=== PATIENT | female | born 1955 | race Caucasian/White ===

== ENCOUNTER 2016-12-08 12:41 | Outpatient (RCR) | payer SELFPAY ==
--- OUTSIDE RECORDS SUMMARY | 2016-09-12 13:29 | XMS REPORT | Continuity of Care Document ---
Author Author [facility] Organization [facility] Address Unknown Phone Unavailable Care Team Providers Care Supervisor Machining Name Role Phone STEPHY YAO MD PCP Insurance Providers Payer Name Policy Number Subscriber Name Relationship [facility] [employer] [id number] Caprice Bartlett 17 Self / Same As Patient Advance Directives Directive Response Recorded Date/Time Advance Directives Yes 02/01/16 12:16pm Health Care Power of Sales Stock Associate Y ANDRZEJ 02/01/16 12:16pm Organ Donor Yes 02/01/16 12:16pm Resuscitation Status Full Code 02/01/16 12:16pm Problems Active Problems Medical Problem Onset Date Status Abnormal surgical wound Unknown Acute Cellulitis Unknown Acute Cellulitis of left leg Unknown Acute Multiple lacerations Unknown Acute Multiple lacerations Unknown Acute Nausea Unknown Acute Necrosis of surgical wound Unknown Acute Sepsis Unknown Acute Surgical wound infection Unknown Acute Medications Current Home Medications Medication Dose Units Route Directions Days/Qty Instructions Start Date Melatonin/Pyridoxine Hcl (B6) 1 Each 10 Mg Oral Bedtime 05/05/14 Diazepam 5 Mg 5 Mg Oral Bedtime FILLED TWO TIMES DAILY 04/14/15 Ranitidine Hcl 150 Mg 150 Mg Oral Daily as needed for Heartburn 08/17 Docusate Sodium 100 Mg 300 Mg Oral Daily TAKE 3 (100MG) TABS 04/14/15 Sennosides/Docusate Sodium 1 Each 3 Tab Oral Bedtime 04/14/15 Aspirin 81 Mg 81 Mg Oral Daily 05/28/15 Multivitamin 1 Each 1 Tab Oral Daily 05/28/15 Ibuprofen 800 Mg 800 Mg Oral Every 8HRS as needed for Moderate Pain 05/31/15 Oxycodone Hcl/Acetaminophen 1 Each 1-2 Tab Oral Every 4-6 Hours as needed for Pain 05/31/15 Prednisone 20 Mg 20 Mg Oral As Directed 20 06/11/15 Past Home Medications Medication Directions Ordered Status Tramadol Hcl 50 Mg Tablet, 50 Mg Oral Every 4HRS as needed for Pain 05/05/14 Discontinued Ibuprofen 200 Mg Tablet, 800 Mg Oral Three Times A Day as needed for Pain 10/17 Discontinued Cyclobenzaprine Hcl (Flexeril) 10 Mg Tablet, 10 Each Oral Three Times A Day 05/05/14 Discontinued Multivitamin 1 Each Tablet, 1 Each Oral Daily 05/05/14 Discontinued Trimethoprim/Sulfamethoxazole 1 Ea Tablet, 1 Ea Oral Twice A Day 05/05/14 Discontinued Hydrocodone Bit/Acetaminophen 1 Tab Tablet, 1 Tab Oral Every 4HRS 05/05/14 Discontinued Ibuprofen 800 Mg Tablet, 800 Mg Oral Three Times A Day 04/14/15 Discontinued Hydrocodone/Acetaminophen 1 Each Tablet, 1 Tab Oral Every 4HRS as needed for Pain 04/14/15 Discontinued Oxycodone Hcl/Acetaminophen 1 Each Tablet, 1 Each Oral Every 4HRS 04/22/15 Discontinued [Omnicef] , 300 Mg Oral Twice A Day 05/08/15 Discontinued Ibuprofen 200 Mg Tablet, 800 Mg Oral Every 8HRS as needed for Pain 05/28/15 Discontinued Vancomycin Hcl 750 Mg/Vial Soln, 1250 Mg Intraven Every 12 Hours 06/03/15 Discontinued Vancomycin Hcl 750 Mg/Vial Soln, 1250 Mg Intraven Twice A Day 06/03/15 Discontinued Social History Social History Problem Response Recorded Date/Time Alcohol Use Denies Use 06/04/2015 10:02pm Recreational Drug Use No 06/04/2015 10:02pm Recent Foreign Travel No 02/01/2016 12:16pm Sexually Transmitted Disease No 06/04/2015 10:02pm HIV/AIDS No 06/04/2015 10:02pm Do you dip or chew tobacco? No 06/04/2015 10:04pm Sexually Transmitted Disease No 06/04/2015 10:02pm Hospital Discharge Instructions No hospital discharge instructions. Plan of Care Prescriptions See Medication Section Functional Status No functional status results. Allergies, Adverse Reactions, Alerts Allergen Type Severity Reaction Status Last Updated Penicillins ([id number]) Allergy Mild DOES NOT REMEMBER, WAS A CHILD Active 04/21/15 Tetanus Vaccines & Toxoid ([id number]) Allergy Unknown Active 05/05/14 ofloxacin ([id number]) Allergy Unknown Active 05/05/14 Immunizations No immunization records. Vital Signs Acute Vital Signs Vital Response Date/Time Temperature (Fahrenheit) 98.0 degrees F (97.6 - 99.5) 04/05/2016 1:25pm Temperature (Calculated Celsius) 36.12316 degrees C (36.4 - 37.5) 04/05/2016 1:25pm Temperature Source Temporal 04/05/2016 1:25pm Pulse Rate (adult) 79 bpm (60 - 90) 04/05/2016 1:25pm Respiratory Rate 18 bpm (12 - 24) 04/05/2016 1:25pm Blood Pressure 158/90 mm Hg 04/05/2016 1:25pm Blood Pressure Mean 112 mm Hg 04/05/2016 1:25pm Pain Numeric Pain Scale 0-No Pain 04/05/2016 1:25pm Height (Feet) 5 feet 04/05/2016 1:25pm Height (Inches) 4.02 inches 04/05/2016 1:25pm Height (Calculated Centimeters) 162.276210 cm 04/05/2016 1:25pm Weight (Pounds) 250 pounds 04/05/2016 1:25pm Weight (Ounces) 7.1 oz 04/05/2016 1:25pm Weight (Calculated Grams) 486027.375 gm 04/05/2016 1:25pm Weight (Calculated Kilograms) 113.504405 kilograms 04/05/2016 1:25pm Height 5 ft 4.02 in Weight 250 lb Body Mass Index 43.0 kg/m^2 Results No known relevant diagnostic tests, laboratory data and/or discharge summary. Procedures No known history of procedures. Encounters Encounter Location Arrival/Admit Date Discharge/Depart Date Attending Provider Discharged [facility]ring [facility] 04/05/16 1:25pm 11:59pm BERNIE QUACH DO
[2016-09-12 13:49] VITALS: BP 149/82
[2016-10-13 13:45] VITALS: BP 170/92
[2016-11-10 13:39] VITALS: BP 168/91
[~2016-12-08] VITALS: Ht 162.6 cm; Wt 113.6 kg
[~2016-12-08 12:41] MED LIST: ASPI-586 PO; CYCL10TA9 PO; DIAZ5TAB3 PO; DOCU-143 PO; HYDR-3714 PO; HYDR-3816 PO; IBUP-15 PO; IBUP-1780 PO; IBUP-65 PO; MELA1TAB20 PO; MULT-974 PO; OMNICEF PO; OXYC-197 PO; PRD20T PO; RANI150T15 PO; SENN-33 PO; SULF-222 PO; TRAM50TA2 PO; VANC750V IV
[2016-12-08 13:00] VITALS: BP 146/90
== END 2016-12-11 | disposition home or self-care (01) ==
LOC: SDC 12:41
PROVIDERS: ATTEND Surgery
DX: I87.2 Venous insufficiency (chronic) (peripheral) (principal)
CPT/HCPCS: 96523

== ENCOUNTER 2017-03-12 13:03 | Outpatient (RCR) | payer MEDICARE ==
[2017-01-05 12:45] VITALS: BP 143/88
[2017-02-09 13:34] VITALS: BP 140/81
[~2017-03-12] VITALS: Ht 162.6 cm; Wt 113.6 kg
[2017-03-12 13:02] VITALS: BP 146/92
[2017-03-14] MEDS ORDERED: MELA1TAB27 PO (14:19)
[2017-03-14] MEDS ORDERED: CYAN250010 PO (14:22)
[2017-03-14] MEDS ORDERED: ACET-2267 PO (14:22)
[2017-03-14] MEDS ORDERED: MECL-106 PO (14:22)
[2017-03-15] MEDS ORDERED: DIAZ5TAB PO (09:30)
== END 2017-04-05 | disposition home or self-care (01) ==
LOC: SDC 13:03
PROVIDERS: ATTEND Surgery
DX: I87.2 Venous insufficiency (chronic) (peripheral) (principal)
CPT/HCPCS: 96523

== ENCOUNTER 2017-03-14 12:53 | Outpatient (CLI) | payer MEDICARE ==
[~2017-03-14] VITALS: Ht 162.6 cm; Wt 120.2 kg
[2017-03-14] MEDS ORDERED: MELA1TAB27 PO (14:19)
[2017-03-14] MEDS ORDERED: MECL-106 PO (14:22)
[2017-03-14] MEDS ORDERED: CYAN250010 PO (14:22)
[2017-03-14] MEDS ORDERED: ACET-2267 PO (14:22)
[2017-03-15] MEDS ORDERED: DIAZ5TAB PO (09:30)
== END 2017-03-14 14:44 ==
LOC: PREOP 12:53
PROVIDERS: ATTEND Surgery
DX: Z01.818 Encounter for other preprocedural examination (principal); Z45.2 Encounter for adjustment and management of vascular access device

== ENCOUNTER 2017-03-15 08:39 | Day surgery (SDC) | payer MEDICARE ==
[~2017-03-15] VITALS: Ht 162.6 cm; Wt 120.2 kg
[~2017-03-15 08:39] MED LIST changes: +ACET-2267 PO; +CYAN250010 PO; +MECL-106 PO; +MELA1TAB27 PO
[2017-03-15] MEDS ORDERED: CLINDAMYCIN 600 MG/NS 50 ML IVPB IV ONE ×2 (09:00)
[2017-03-15] MEDS ORDERED: CATHETER FLUSH 10 ML SYR IV PRN (09:00)
[2017-03-15] MEDS ORDERED: LACTATED RINGERS 1,000 ML IV PRN (09:15)
[2017-03-15] MEDS ORDERED: ONDANSETRON 4 MG/2 ML (SDV) Z0FRAN IV ONE (09:15)
[2017-03-15] MEDS ORDERED: FAMOTIDINE 20MG/2ML IV (PEPCID) IV ONE (09:15)
[2017-03-15] MEDS ORDERED: DIAZ5TAB PO (09:30)
[2017-03-15 09:39] VITALS: BP 136/78
--- NOTE | 2017-03-15 09:43 | Progress Note-Pre Operative ---
Pre-Operative Progress Note H&P Reviewed The H&P was reviewed, patient examined and no changes noted. Date Seen by Provider: Mar 15, 2017 Time Seen by Provider: 09:42 Date H&P Reviewed: Mar 15, 2017 Time H&P Reviewed: 09:42 Pre-Operative Diagnosis: history of cellulitis, no longer needing port BERNIE QUACH DO Mar 15, 2017 09:42
[2017-03-15] MEDS ORDERED: LIDOCAINE 1% INJ 20 ML (XYLOCAINE) VIAL ONE (09:55)
[2017-03-15] MEDS ORDERED: BUPIVACAINE 0.5% 30 ML (SENSORCAINE) VIAL ONE (09:55)
[2017-03-15] MEDS ORDERED: MIDAZOLAM 2 MG/2 ML (VERSED) VIAL ONE ×2 (10:33→10:54)
--- NOTE | 2017-03-15 11:00 | Discharge Inst-Simple/Standard ---
Discharge Inst-Standard Discharge Medications New, Converted or Re-Newed RX: RX on Chart Patient Instructions/Follow Up Plan of Care/Instructions/FU: Follow up with Dr. Quiñonez in 2 days. Apply Ice to area for 10 mins on and 10 mins off. Activity as Tolerated: No Discharge Diet: No Restrictions Other Inst to Patient Follow up Appt: Make appointment for 2 weeks. Instructions: No lifting greater than 10 pounds. No strenuous activity. May shower in 24 hours, no tub bath or soaking. Use incentive spirometer at home as directed. No Smoking Skin/Wound Care: May remove bandages. You need to leave the glue strips over incision on they will fall off on their own. Symptoms to Report: Appetite Changes, Extremity Discoloration, Numbness/Tingling, Swelling Increased , Bleeding Excessive, Eyesight Changes, Pain Increased, Urine Color Change, Constipation(Persistent), Fever over 101 degree F, Pain/Pressure in chest, Urinating Difficulty, Cough Up/Vomit Blood, Heart Beat Irreg/Pounding, Pain/ Pressure in jaw, Vaginal Bleeding Increase, Cramps in feet or legs, Lightheadedness, Pain/Pressure in shoulder, Diarrhea(Persistent), Memory Changes Suddenly, Questions/Concerns, Weight gain consecutive days, Dizziness/ Fainting, Nausea/Vomiting, Shortness of Breath, Weight gain over 2 pounds If questions or concerns contact your physician Or seek help at emergency department. SUSHILA EVANS APRN Mar 15, 2017 11:00
[2017-03-15] MEDS ORDERED: LACTATED RINGERS 1,000 ML IV ONE (11:05)
[2017-03-15] MEDS ORDERED: proPOfol 200 MG/20 ML (DIPRIVAN) VIAL IV ONE (11:05)
--- NOTE | 2017-03-15 11:10 | Progress Note-Post Operative ---
Post-Operative Progess Note Surgeon (s)/Tongue Stitcher (s) Surgeon BERNIE QUACH DO Tongue Stitcher: na Pre-Operative Diagnosis history of cellulitis, no longer needing port Post-Operative Diagnosis same Procedure & Operative Findings Date of Procedure 03/15/17 Procedure Performed/Findings removal port Anesthesia Type mac c local Estimated Blood Loss Estimated blood loss (mL): min Specimens/Packing Specimens Removed none BERNIE QUACH DO Mar 15, 2017 11:10
[2017-03-15] MEDS ORDERED: ONDANSETRON 4 MG/2 ML (SDV) Z0FRAN IVP PRN (11:30)
[2017-03-15] MEDS ORDERED: morphine INJ 10 MG/ML 1ML (SYR OR VIAL) IVP PRN (11:30)
[2017-03-15 11:45] VITALS: BP 138/78
[2017-03-15 12:15] VITALS: BP 127/72
[2017-03-15 12:35] VITALS: BP 127/72
--- NOTE | 2017-03-16 17:10 | OPERATIVE REPORT ---
PROCEDURE PHYSICIAN: BERNIE QUACH DATE OF PROCEDURE: 03/15/2017 PREOPERATIVE DIAGNOSIS: History of cellulitis, no longer needing port. POSTOPERATIVE DIAGNOSIS: History of cellulitis, no longer needing port. PROCEDURE: Port removal. SURGEON: Olamide. ANESTHESIA: MAC with Local. ESTIMATED BLOOD LOSS: Minimal. COMPLICATIONS: None. INDICATIONS: The patient is a 61-year-old female with was a port that was placed for a long-term antibiotics for a left lower extremity infection. She had poor venous access at that time as well. She understands the risks and benefits of the procedure. She no longer is needing the port and she wished to have it removed. She understands the risks and benefits of the procedure and wishes to proceed with the procedure. Consent was signed on the chart. PROCEDURE: The patient was taken to the operating suite. She was prepped and draped in the sterile fashion. A surgical pause was performed. Local anesthetic was infiltrated into the area. Through the existing scar, using a 15 blade scalpel an incision was made. Cautery was used to dissect down to the port where it was then mobilized around, grasped, elevated and removed. It was removed in its entirety. The wound was then irrigated with copious amounts of irrigation. Hemostasis was achieved. The subcutaneous tissues were then reapproximated using 3-0 Vicryl. The area then washed and dried and Dermabond was placed over the incision. The patient tolerated procedure well without any complications. She was taken to recovery room in stable condition. Job ID: [id number] Dictated Date: 03/15/2017 11:12:55 [employer] Supervisor Date: 03/16/2017 17:03:09 / presley
== END 2017-03-15 12:35 | disposition home or self-care (01) ==
LOC: SDC 08:39
PROVIDERS: ATTEND Surgery
DX: Z45.2 Encounter for adjustment and management of vascular access device (principal); Z87.2 Personal history of diseases of the skin and subcutaneous tissue; E66.01 Morbid (severe) obesity due to excess calories; Z68.42 Body mass index [BMI] 45.0-49.9, adult
CPT/HCPCS: 87081